=== PATIENT | male | born 1965 | race Caucasian/White ===

== ENCOUNTER 2017-05-03 09:56 | Day surgery (SDC) | payer OTHER ==
[~2017-05-03] VITALS: Ht 177.8 cm; Wt 87.3 kg
[~2017-05-03 09:56] MED LIST: ASPI325
[2017-05-03] MEDS ORDERED: Hair, Skin & N1 EACH (10:32)
== END 2017-05-03 11:50 | disposition home or self-care (01) ==
LOC: ORSCSDS 09:56
PROVIDERS: Internal Medicine Gastroenterology
PROC: 0DJD8ZZ Inspection of Lower Intestinal Tract, Via Natural or Artificial Opening Endoscopic (ICD-10-PCS; principal; 2017-05-03 11:00)
DX: Z12.11 Encounter for screening for malignant neoplasm of colon (principal); K64.8 Other hemorrhoids; Z86.010 Personal history of colon polyps; Z80.0 Family history of malignant neoplasm of digestive organs; Z79.82 Long term (current) use of aspirin; Z79.899 Other long term (current) drug therapy
CPT/HCPCS: J7120

== ENCOUNTER → 2019-03-28 | Outpatient (CLI) | payer OTHER ==
[~2019-03-28] MED LIST changes: +Hair, Skin & N1 EACH
== END | disposition home or self-care (01) ==
LOC: LAB EV 12:12 → LAB SHORT 12:12
DX: J02.0 Streptococcal pharyngitis (principal)
CPT/HCPCS: 87081

== ENCOUNTER 2022-10-17 12:12 | Emergency (ER) | payer OTHER ==
[~2022-10-17] VITALS: Ht 177.8 cm; Wt 86.2 kg
[2022-10-17 12:24] VITALS: BP 160/95
== END 2022-10-17 13:48 | disposition home or self-care (01) ==
LOC: ER 12:12
DX: S61.211A Laceration without foreign body of left index finger without damage to nail, initial encounter (principal); W26.0XXA Contact with knife, initial encounter; Z23 Encounter for immunization; Z79.899 Other long term (current) drug therapy; Z79.82 Long term (current) use of aspirin
CPT/HCPCS: 12001; 90471; 90715; 99282-25